=== PATIENT | female | born 1965 | race Caucasian/White ===

== ENCOUNTER → 2016-08-18 | Outpatient (CLI) | payer BC ==
--- NOTE | 2016-08-18 17:11 | WWHP ---
DATE OF DICTATION: 08/18/2016 CHIEF COMPLAINT: The patient is here for her routine gynecologic exam. HISTORY OF PRESENT ILLNESS: This is a 51-year-old G2, P2 with an LMP of 05/16/15. The patient's is status post vasectomy. She states she has been having some menopausal symptoms, and the one that bothers her the most is "feeling on edge." She also does wake at night, feeling hot at times. She has also had some problems with weight gain, which she thinks is related to the menopausal change. She previously took Prozac after the of her parents, and this was temporary. She does believe it did help in that situation. PAST MEDICAL HISTORY: Osteopenia. MEDICATIONS: 1. Valacyclovir 1 daily for a history of corneal herpes. 2. Pred Forte drops for her eyes daily. ALLERGIES: SULFA. 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 SOCIAL HISTORY: She continues to smoke about half a pack of cigarettes per day and has about 2 alcoholic drinks per year. She denies drug use. 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 REVIEW OF SYSTEMS: She has gained about 5 pounds over the last year. She denies respiratory, cardiac or GI problems. PHYSICAL EXAM: Blood pressure 134/91. Height 5 feet 7 inches. Weight 154 pounds. Temperature 97.8, pulse 68. This is a well-developed, well-nourished white female who is alert and oriented x3, in no acute distress. HEENT is within normal limits. NECK: Supple without mass or thyromegaly. CHEST AND LUNGS: Clear to auscultation. HEART: Regular rate and rhythm. Breasts are without mass or discharge. Axillary exam is negative for adenopathy. BACK: Negative for CVA tenderness. ABDOMEN: Soft, nontender, without palpable masses. PELVIC EXAM: External genitalia reveal mild atrophy without lesions. Cervix and vagina reveal mild atrophy without lesions. There is no evidence of prolapse. The uterus is midposition, nongravid size and nontender. There are no palpable adnexal masses or tenderness. Rectovaginal exam is negative for mass or tenderness and is negative for occult blood. EXTREMITIES: Nontender. IMPRESSION: Hsaql-ovon-hzvj-old menopausal female with menopausal symptoms, including slight irritability, anxiety, vasomotor symptoms and slight weight gain. PLAN: 1. Pap smear was performed. 2. Self breast examination was discussed. 3. Mammogram will be due in 01/30, and a slip was given to the patient for this. 4. We discussed her mildly elevated blood pressure. I have recommended that she have this checked on a regular basis and follow up with Dr. Wells for blood pressure elevations. 5. We have had a long discussion regarding menopausal symptoms. We discussed various options, including low-dose HRT, SSRI medications and herbal supplements. We have discussed pros and cons with each. She would like a trial of Prozac, since she states she had done well on this in the past. A prescription for Prozac 10 mg 1 daily was given to the patient. She was instructed call if she has any problems, including any suicidal thoughts. If she is doing well with the Prozac, she will try weaning down and off of it in approximately 4 months. If she continues to have symptoms or issues, she was instructed to make a follow-up appointment with me. 6. Osteoporosis prevention was discussed. I gave her a handout on osteoporosis prevention. Will plan on repeating bone density testing in one year. 7. She will return in one year and p.r.n.
== END | disposition home or self-care (01) ==

== ENCOUNTER → 2017-02-10 | Outpatient (CLI) | payer BC ==
--- NOTE | 2017-02-11 13:59 | MM ---
Reason for exam: screening (asymptomatic). Last mammogram was performed 1 year ago. History: Patient is postmenopausal. Family history of breast cancer in sister at age 47. Benign US biopsy breast VAD RT of the right breast, January 24, 2015. Benign excisional biopsy of the left breast, 1989. Physical Findings: A clinical breast exam by your physician is recommended on an annual basis and results should be correlated with mammographic findings. MG 3D Screening Mammo W/Cad Bilateral CC and MLO view(s) were taken. Prior study comparison: February 03, 2016, bilateral MG 3d screening mammo w/cad. August 06, 2015, right breast MG 3d diag mammo w/cad RT. The breast tissue is heterogeneously dense. This may lower the sensitivity of mammography. Previous mammotome biopsy in the right breast. No significant changes when compared with prior studies. ASSESSMENT: Benign, BI-RAD 2 RECOMMENDATION: Routine screening mammogram of both breasts in 1 year.
== END | disposition home or self-care (01) ==
LOC: RADMAMWWP 07:07
PROVIDERS: ATTEND Obstetrics & Gynecology
DX: Z12.31 Encounter for screening mammogram for malignant neoplasm of breast (principal)
CPT/HCPCS: 77063; G0202

== ENCOUNTER → 2017-11-16 | Outpatient (CLI) | payer BC ==
[2017-11-16 08:41] VITALS: PULSE 77; TEMP 98.2; BMI 23.6
--- NOTE | 2017-11-16 08:50 | P.HPOB ---
History of Present Illness H&P Date: 11/16/17 Chief Complaint: The patient is here for her routine gynecologic exam. This is a 52-year-old NG tube P2 with an LMP of 05/2016. The patient is without gynecologic complaints and denies any postmenopausal bleeding. She occasionally has a hot flash at night but this is mild. Her biggest problem with menopause has been the difficulty losing weight. Review of Systems She has lost 3 pounds over the last year. She recently got over the flu. She denies current respiratory, cardiac, or G.I. problems. Past Medical History Additional Past Medical History / Comment(s): History of osteopenia. Past OB history: to vaginal deliveries. 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 Colonoscopy 2016 and this was her 3rd one. 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 - Past Family History Sister(s) Family Medical History: Cancer (Breast cancer in her 40s.) Father Family Medical History: Diabetes Mellitus, Myocardial Infarction ([place]) Medications and Allergies Home Medications Medication Instructions Recorded Confirmed Type Calcium Carbonate/Vitamin D3 1 each PO DAILY 11/16/17 11/16/17 History [Calcium 600-Vit D3 500 Softgel] Cholecalciferol [Vitamin D3] 1,000 unit PO DAILY 11/16/17 11/16/17 History Multivitamins, Thera [Multivitamin 1 tab PO DAILY 11/16/17 11/16/17 History (formulary)] [place]-3 Fatty Acids [[place]-3] 1,000 mg PO DAILY 11/16/17 11/16/17 History valACYclovir [Valtrex] 1 tab PO DIRECTED 11/16/17 11/16/17 History Allergies Allergy/AdvReac Type Severity Reaction Status Date / Time Sulfa (Sulfonamide Allergy Rash/Hives Verified 12/31/14 07:31 Antibiotics) Exam - Vital Signs Vital signs: Intake and Output 11/15/17 11/16/17 11/16/17 22:59 06:59 14:59 Other: Weight 68.492 kg Blood pressure 157/88. Repeat blood pressure 138/78. Height 5'7", weight 151 pounds, temperature 98.2, pulse 77. This is a well-developed well-nourished white female who is alert and oriented times 3 in no acute distress. HEENT: Within normal limits. NECK: Supple without mass or thyromegaly. CHEST AND LUNGS: Clear to auscultation. HEART: Regular rate and rhythm. BREASTS: Are without mass or discharge. AXILLARY EXAM: Negative for adenopathy. BACK: Negative for CVA tenderness. ABDOMEN: Soft, nontender, without palpable masses. PELVIC EXAM: Normal external genitalia without significant atrophy. Cervix and vagina appear normal without significant atrophy. There is no unusual discharge. There is no evidence of prolapse. The uterus is midposition, nongravid size and nontender. There are no palpable adnexal masses or tenderness. RECTAL EXAM: rectovaginal exam is negative for mass or tenderness and is negative for occult blood. EXTREMITIES: Nontender. IMPRESSION: 1. 52-year-old menopausal female with normal gynecologic exam. 2. History of osteopenia. PLAN: 1. Pap smear was deferred since she had a normal one last year. 2. Self breast examination was discussed. 3. Screening mammogram will be due in January 2018. An order slip was given the patient for this. 4. Osteoporosis prevention was discussed. An order slip for a bone density test was given to the patient. She will do this at the time of her mammogram. 5. She will return in one year.
== END | disposition home or self-care (01) ==
LOC: WWCWWP 08:04
PROVIDERS: ATTEND Obstetrics & Gynecology
DX: Z53.9 Procedure and treatment not carried out, unspecified reason (principal)

== ENCOUNTER → 2018-02-21 | Outpatient (CLI) | payer BC ==
--- NOTE | 2018-02-21 12:14 | BD ---
EXAMINATION TYPE: Axial Bone Density DATE OF EXAM: 02/21/2018 COMPARISON: 2016 CLINICAL HISTORY: post menopausal female. Osteoporosis screening. Height: 5'6 Weight: 153 FRAX RISK QUESTIONS: Secondary Osteoporosis: Current Tobacco Use: y RISK FACTORS HISTORY OF: Family History of Osteoporosis: y Postmenopausal woman: y MEDICATIONS: Additional Medications: cornea transplant Additional History: EXAM MEASUREMENTS: Bone mineral densitometry was performed using the [employer] System. Bone mineral density as measured about the Lumbar spine is: ----- L1-L4(G/cm2): 0.799 T Score Values are as follows: ----- L2: -3.3 ----- L3: -3.5 ----- L4: -3.0 ----- L1-L4: -3.2 Bone mineral density has: Decreased -11.4% since study of: 11/08/2015 Bone mineral density about the R hip (g/cm2): 0.839 Bone mineral density about the L hip (g/cm2): 0.764 T Score values are as follows: -----R Neck: -1.4 -----L Neck: -2.0 -----R Total: -1.7 -----L Total: -2.1 Bone mineral density has: Decreased -8.5% since study of: 11/08/2015 IMPRESSION: Osteoporosis (T Score less than -2.5) with regards to the lumbar spine. There is increased fracture risk and therapy is usually indicated based on age. Re-Screen 1-2 years. NOTE: T-SCORE=SD OF THE YOUNG ADULT MEAN.
--- NOTE | 2018-02-22 10:17 | MM ---
Reason for exam: screening (asymptomatic). Last mammogram was performed 1 year ago. History: Patient is postmenopausal. Family history of breast cancer in sister at age 47. Benign US biopsy breast VAD RT of the right breast, January 24, 2015. Benign excisional biopsy of the left breast, 1989. Physical Findings: A clinical breast exam by your physician is recommended on an annual basis and results should be correlated with mammographic findings. MG 3D Screening Mammo W/Cad Bilateral CC and MLO view(s) were taken. Prior study comparison: February 10, 2017, bilateral MG 3d screening mammo w/cad. February 03, 2016, bilateral MG 3d screening mammo w/cad. The breast tissue is heterogeneously dense. This may lower the sensitivity of mammography. There is no discrete abnormality. No significant changes when compared with prior studies. ASSESSMENT: Negative, BI-RAD 1 RECOMMENDATION: Routine screening mammogram of both breasts in 1 year.
== END | disposition home or self-care (01) ==
LOC: RADMAMWWP 07:04
PROVIDERS: ATTEND Obstetrics & Gynecology
DX: Z12.31 Encounter for screening mammogram for malignant neoplasm of breast (principal); M81.0 Age-related osteoporosis without current pathological fracture; Z78.0 Asymptomatic menopausal state
CPT/HCPCS: 77063; 77067; 77080

== ENCOUNTER → 2018-08-18 | Outpatient (CLI) | payer BC ==
[2018-08-18 07:08] LABS: Blood Urea Nitrogen 15 mg/dL (7-17)
--- NOTE | 2018-08-18 08:04 | CT ---
EXAMINATION TYPE: CT soft tissue neck w con DATE OF EXAM: 08/18/2018 COMPARISON: None HISTORY: Cervical Lymphadenopathy CT DLP: 625 mGycm CONTRAST: CT scan of the neck is performed with IV Contrast, patient injected with 100 mL of Isovue 300. Contrast enhanced CT of the neck was performed from the skull base through the lung apices. AIRWAY: The supraglottic, glottic, and subglottic portions of the airway appear patent and free of mass. SALIVARY GLANDS: The submandibular and parotid glands are free of mass or inflammatory process. THYROID GLAND: No nodules or masses seen. LYMPH NODES: BBs is placed at the site of clinical concern posterior right neck where there is a smal l 3 to 4 mm lymph node. No adenopathy seen greater than 1cm. LUNG APICES: No nodule or mass is seen. OTHER: Vascular structures are patent. No significant degenerative change of the cervical spine. N o abscess seen. IMPRESSION: There is a 4 mm lymph node at the site of clinical concern posterior right neck.
== END | disposition home or self-care (01) ==
LOC: RADCTMAIN 06:31
PROVIDERS: ATTEND Internal Medicine
DX: R59.0 Localized enlarged lymph nodes (principal)
CPT/HCPCS: 82565; 84520; 70491; 36415; Q9967

== ENCOUNTER → 2019-02-28 | Outpatient (CLI) | payer BC ==
[2019-02-28 09:32] VITALS: BP 152/91; PULSE 84; RESP 16; TEMP 98.5; BMI 23.9
--- NOTE | 2019-02-28 10:19 | P.HPOB ---
History of Present Illness H&P Date: 02/28/19 Chief Complaint: The patient is here for her routine gynecologic exam and ma mmogram. This is a 54-year-old with an LMP of 2016. The patient is without gynecologic complaints. She states she was told she was anemic and was told to start iron supplementation after a blood test last month. The Iron supplement caused constipation. Review of Systems Her weight has been stable. She denies respiratory or cardiac problems. G.I.: she has had problems with constipation since starting an iron supplement as in the HPI. Past Medical History Additional Past Medical History / Comment(s): History of osteoporosis. Past OB history: 2 vaginal deliveries. 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 History of Any Multi-Drug Resistant Organisms: None Reported Past Surgical History: Breast Surgery, Tonsillectomy Additional Past Surgical History / Comment(s): Left breast biopsy and right breast biopsy in the past. 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 Colonoscopy 2016 and this was her 3rd one. 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 - Past Family History Sister(s) Family Medical History: Cancer Additional Family Medical History / Comment(s): Breast cancer in her 40s. Father Family Medical History: Diabetes Mellitus, Myocardial Infarction ([place]) Medications and Allergies Home Medications Medication Instructions Recorded Confirmed Type Calcium Carbonate/Vitamin D3 1 each PO DAILY 11/16/17 02/28/19 History [Calcium 600-Vit D3 500 Softgel] Cholecalciferol [Vitamin D3] 1,000 unit PO DAILY 11/16/17 02/28/19 History Multivitamins, Thera [Multivitamin 1 tab PO DAILY 11/16/17 02/28/19 History (formulary)] valACYclovir [Valtrex] 1 tab PO DIRECTED 11/16/17 02/28/19 History Cyanocobalamin [Vitamin B-12] 500 mcg PO DAILY 02/28/19 02/28/19 History Ferrous Sulfate [Feosol] 325 mg PO DAILY 02/28/19 02/28/19 History Allergies Allergy/AdvReac Type Severity Reaction Status Date / Time Sulfa (Sulfonamide Allergy Rash/Hives Verified 02/28/19 09:35 Antibiotics) Exam Vital Signs Temp Pulse Resp BP Pulse Ox 02/28/19 09:26 98.5 F 84 16 152/91 99 Intake and Output 02/27/19 02/28/19 02/28/19 22:59 06:59 14:59 Other: Weight 69.4 kg Height 5'7", weight 153 pounds, BMI 24.0. This is a well-developed well-nourished white female who is alert and oriented times 3 in no acute distress. HEENT: Within normal limits. NECK: Supple without mass or thyromegaly. CHEST AND LUNGS: Clear to auscultation. HEART: Regular rate and rhythm. BREASTS: Are without mass or discharge. AXILLARY EXAM: Negative for adenopathy. BACK: Negative for CVA tenderness. ABDOMEN: Soft, nondistended, with minimal lower abdominal tenderness without rebound. The patient attributes the slight discomfort with constipation. Abdomen is without palpable masses. PELVIC EXAM: Normal external genitalia. Cervix and vagina appear normal. There is no unusual discharge. There is no evidence of prolapse. The uterus is midposition, nongravid size and nontender. There are no palpable adnexal masses or tenderness. RECTAL EXAM: rectovaginal exam is negative for mass or tenderness and is negative for occult blood. EXTREMITIES: Nontender. IMPRESSION: 1. 54-year-old menopausal female with normal gynecologic exam. 2. Elevated blood pressure. 3. Constipation probably secondary to her Iron supplement. 4. History of osteoporosis. The patient is declining medication for this at this time. PLAN: 1. Pap smear was performed. 2. Self breast awareness was discussed with the patient. 3. Screening mammogram will be done today. 4. I have recommended that she check her blood pressure on her own on a regular basis. She is to follow-up with Dr. Wells for blood pressure elevations. 5. Osteoporosis management was discussed. I have again recommended medication for osteoporosis. She is declining medication at this time. She understands that she is at a greater risk for fracture bones. I have also recommended that she quit smoking. I have stressed the importance of adequate calcium, vitamin D and regular exercise. Recommended amounts of calcium and vitamin D were also discussed. She will let me know if she changes her mind about medical treatment for osteoporosis. 6. We discussed some options for her constipation. We discussed options such as laxatives, still softeners and natural remedies. She will try hot lemon water 1st thing in the morning on an empty stomach. She will also discuss her blood test results with Dr. Wells to see how necessary the iron supplementation is. 7.She was advised to return in one year for her annual well woman exam.
--- NOTE | 2019-03-01 11:10 | MM ---
Reason for exam: screening (asymptomatic). Last mammogram was performed 1 year ago. History: Patient is postmenopausal. Family history of breast cancer in sister at age 47. Benign US biopsy breast VAD RT of the right breast, January 24, 2015. Benign excisional biopsy of the left breast, 1989. Physical Findings: A clinical breast exam by your physician is recommended on an annual basis and results should be correlated with mammographic findings. MG 3D Screening Mammo W/Cad Bilateral CC and MLO view(s) were taken. Prior study comparison: February 21, 2018, bilateral MG 3d screening mammo w/cad. February 10, 2017, bilateral MG 3d screening mammo w/cad. The breast tissue is heterogeneously dense. This may lower the sensitivity of mammography. Previous mammotome biopsy in the right breast. No significant changes when compared with prior studies. ASSESSMENT: Benign, BI-RAD 2 RECOMMENDATION: Routine screening mammogram of both breasts in 1 year.
== END | disposition home or self-care (01) ==
LOC: WWCWWP 09:21
PROVIDERS: ATTEND Obstetrics & Gynecology
DX: Z12.31 Encounter for screening mammogram for malignant neoplasm of breast (principal)
CPT/HCPCS: 77063; 77067

== ENCOUNTER → 2020-03-20 | Outpatient (CLI) | payer BC ==
[2020-03-20 08:10] VITALS: BP 163/78; PULSE 72; RESP 18; TEMP 97.7
--- NOTE | 2020-03-20 08:52 | P.HPOB ---
History of Present Illness H&P Date: 03/20/20 Chief Complaint: The patient is here for her routine gynecologic exam and ma mmogram. This is a 55-year-old with an LMP of 2016. The patient is without gynecologic complaints. Review of Systems The patient has lost 5 pounds over the last year. She denies respiratory or cardiac problems. GI: Some constipation. Past Medical History Past Medical History: No Reported History Additional Past Medical History / Comment(s): History of osteoporosis. Past OB history: 2 vaginal deliveries. 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 History of Any Multi-Drug Resistant Organisms: None Reported Past Surgical History: Breast Surgery, Tonsillectomy Additional Past Surgical History / Comment(s): Left breast biopsy and right breast biopsy in the past. 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 Colonoscopy 2017 and this was her 3rd one. 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 - Past Family History Sister(s) Family Medical History: Cancer Additional Family Medical History / Comment(s): Breast cancer in her 40s. Father Family Medical History: Diabetes Mellitus, Hypertension, Myocardial Infarction ([place]), Pulmonary Embolus Medications and Allergies Home Medications Medication Instructions Recorded Confirmed Type Calcium Carbonate/Vitamin D3 1 each PO DAILY 11/16/17 03/20/20 History [Calcium 600-Vit D3 500 Softgel] Cholecalciferol [Vitamin D3] 1,000 unit PO DAILY 11/16/17 03/20/20 History Multivitamins, Thera [Multivitamin 1 tab PO DAILY 11/16/17 03/20/20 History (formulary)] valACYclovir [Valtrex] 1 tab PO DIRECTED 11/16/17 03/20/20 History Cyanocobalamin [Vitamin B-12] 500 mcg PO DAILY 02/28/19 03/20/20 History Prednisolone Acetate/Pf 1 drop RIGHT EYE DAILY 03/20/20 03/20/20 History [Prednisolone Acet 1% Eye Drop] Allergies Allergy/AdvReac Type Severity Reaction Status Date / Time Sulfa (Sulfonamide Allergy Rash/Hives Verified 03/20/20 08:02 Antibiotics) Exam Vital Signs Temp Pulse Resp BP Pulse Ox 03/20/20 08:04 97.7 F 72 18 163/78 100 Intake and Output 03/19/20 03/20/20 03/20/20 22:59 06:59 14:59 Other: Weight 67.132 kg Height 5 feet 6 inches, weight 148 pounds, BMI 23.9. This is a well-developed well-nourished white female who is alert and oriented times 3 in no acute distress. HEENT: Within normal limits. NECK: Supple without mass or thyromegaly. CHEST AND LUNGS: Clear to auscultation. HEART: Regular rate and rhythm. BREASTS: Are without mass or discharge. AXILLARY EXAM: Negative for adenopathy. BACK: Negative for CVA tenderness. ABDOMEN: Soft, nontender, without palpable masses. PELVIC EXAM: Normal external genitalia. Cervix and vagina appear normal. There is no unusual discharge. There is no evidence of prolapse. The uterus is midposition, nongravid size and nontender. There are no palpable adnexal masses or tenderness. RECTAL EXAM: Rectovaginal exam is negative for mass or tenderness and is negative for occult blood. EXTREMITIES: Nontender. IMPRESSION: 1. 55-year-old menopausal female with normal gynecologic exam. 2. History of osteoporosis and she has declined medication in the past. 3. Elevated blood pressure. PLAN: 1. Pap smear was deferred since she had a normal one on 02/28/2019. 2. Self breast awareness was discussed with the patient. 3. Screening mammogram will be done today. 4. We have discussed her elevated blood pressure. We have discussed risks of uncontrolled hypertension including greater risk for stroke, heart attack and blood clots. We have also discussed the significant risks of smoking. I have stressed the importance of trying to quit. I have recommended she check her own blood pressure on a regular basis and follow up with her primary care physician Dr. Wells. She states she will make an appointment with Dr. Wells to discuss this. 5. Osteoporosis management was discussed. I have stressed the importance of adequate calcium, vitamin D and regular exercise. Recommended amounts of calcium and vitamin D were also discussed. We have discussed the option of medication for osteoporosis and I am recommending this for the patient. She is very concerned about possible side effects and risks of taking this medication. She states she would like to redo her bone density test and if there is a significant decrease she states she would consider medication. The order slip was given to the patient for this. Her last bone density test was done on 02/21/2018. 6. She was advised to return in one year for her annual well woman exam.
--- NOTE | 2020-03-25 11:21 | MM ---
Reason for exam: screening (asymptomatic). Last mammogram was performed 1 year and 1 month ago. History: Patient is postmenopausal. Family history of breast cancer in sister at age 47. Benign US biopsy breast VAD RT of the right breast, January 24, 2015. Benign excisional biopsy of the left breast, 1989. Physical Findings: A clinical breast exam by your physician is recommended on an annual basis and results should be correlated with mammographic findings. MG 3D Screening Mammo W/Cad Bilateral CC and MLO view(s) were taken. Prior study comparison: February 28, 2019, bilateral MG 3d screening mammo w/cad. February 21, 2018, bilateral MG 3d screening mammo w/cad. The breast tissue is heterogeneously dense. This may lower the sensitivity of mammography. No significant changes when compared with prior studies. ASSESSMENT: Negative, BI-RAD 1 RECOMMENDATION: Routine screening mammogram of both breasts in 1 year.
== END | disposition home or self-care (01) ==
LOC: WWCWWP 07:57
PROVIDERS: ATTEND Obstetrics & Gynecology
DX: Z12.31 Encounter for screening mammogram for malignant neoplasm of breast (principal)
CPT/HCPCS: 77063; 77067

== ENCOUNTER → 2021-03-17 | Outpatient (CLI) | payer BC ==
--- NOTE | 2021-03-17 09:25 | US ---
EXAMINATION TYPE: US liver DATE OF EXAM: 03/17/2021 COMPARISON: Patient's prior is not available for corroboration. CLINICAL HISTORY: 56-year-old female K76.9 Liver Disease. The patient states liver lesion noted on re cent CT. No prior available here. TECHNIQUE: Multiple sonographic images of the right upper quadrant are obtained. FINDINGS: EXAM MEASUREMENTS: Liver Length: 15.6 cm Gallbladder Wall: 0.2 cm CBD: 0.4 cm Right Kidney: 9.5 x 4.5 x 4.6 cm Pancreas: Tail obscured by overlying bowel gas Liver: No focal lesion identified. Overall homogeneous appearance. Gallbladder: no evidence of stones Evidence for sonographic Campa's sign: no CBD: wnl Right Kidney: no evidence of hydronephrosis IMPRESSION: Homogeneous appearance to the liver. No focal lesion identified by ultrasound. Recommend reviewing th e patient's outside study. Depending on the appearance and characteristics of the liver lesion, eithe r follow-up CT or MRI should be considered.
== END | disposition home or self-care (01) ==
LOC: RADUSWWP 07:11
PROVIDERS: ATTEND Family Medicine
DX: K76.9 Liver disease, unspecified (principal)
CPT/HCPCS: 76705

== ENCOUNTER → 2021-03-25 | Outpatient (CLI) | payer BC ==
[2021-03-25 13:00] VITALS: BP 136/87; PULSE 76; RESP 18; TEMP 98.2
--- NOTE | 2021-03-25 13:35 | P.HPOB ---
History of Present Illness H&P Date: 03/25/21 Chief Complaint: The patient is here for her routine gynecologic exam and ma mmogram. This is a 56-year-old with an LMP of 2016. The patient is without gynecologic complaints and denies any postmenopausal bleeding. Review of Systems The patient's weight has been stable over the last year. She denies respiratory, cardiac, or G.I. problems. Past Medical History Past Medical History: No Reported History Additional Past Medical History / Comment(s): History of osteoporosis. Past OB history: 2 vaginal deliveries. 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 History of Any Multi-Drug Resistant Organisms: None Reported Past Surgical History: Breast Surgery, Tonsillectomy Additional Past Surgical History / Comment(s): Left breast biopsy and right breast biopsy in the past. 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 Colonoscopy 2017 and this was her 3rd one. 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 - Past Family History Sister(s) Family Medical History: Cancer Additional Family Medical History / Comment(s): Breast cancer in her 40s. Father Family Medical History: Diabetes Mellitus, Hypertension, Myocardial Infarction ([place]), Pulmonary Embolus Medications and Allergies Home Medications Medication Instructions Recorded Confirmed Type Calcium Carbonate/Vitamin D3 1 each PO DAILY 11/16/17 03/25/21 History [Calcium 600-Vit D3 500 Softgel] Cholecalciferol [Vitamin D3] 1,000 unit PO DAILY 11/16/17 03/25/21 History Multivitamins, Thera [Multivitamin 1 tab PO DAILY 11/16/17 03/25/21 History (formulary)] valACYclovir [Valtrex] 1 tab PO DIRECTED 11/16/17 03/25/21 History Cyanocobalamin [Vitamin B-12] 500 mcg PO DAILY 02/28/19 03/25/21 History Prednisolone Acetate/Pf 1 drop RIGHT EYE DAILY 03/20/20 03/25/21 History [Prednisolone Acet 1% Eye Drop] Alendronate Sodium 70 mg PO WEEKLY #12 tab 04/23/20 03/25/21 Rx Allergies Allergy/AdvReac Type Severity Reaction Status Date / Time Sulfa (Sulfonamide Allergy Rash/Hives Verified 03/25/21 12:53 Antibiotics) Exam Vital Signs Temp Pulse Resp BP Pulse Ox 03/25/21 12:54 98.2 F 76 18 136/87 98 Intake and Output 03/24/21 03/25/21 03/25/21 22:59 06:59 14:59 Other: Weight 67.585 kg Height 5 feet 6 inches, weight 149 pounds, BMI 24.0. This is a well-developed well-nourished white female who is alert and oriented times 3 in no acute distress. HEENT: Within normal limits. NECK: Supple without mass or thyromegaly. CHEST AND LUNGS: Clear to auscultation. HEART: Regular rate and rhythm. BREASTS: Are without mass or discharge. AXILLARY EXAM: Negative for adenopathy. BACK: Negative for CVA tenderness. ABDOMEN: Soft, nontender, without palpable masses. PELVIC EXAM: Normal external genitalia with mild atrophy. Cervix and vagina appear normal with mild atrophy. There is no unusual discharge. There is no evidence of prolapse. The uterus is midposition, nongravid size and nontender. There are no palpable adnexal masses or tenderness. RECTAL EXAM: Rectovaginal exam is negative for mass or tenderness and is negative for occult blood. EXTREMITIES: Nontender. IMPRESSION: 1. 56-year-old menopausal female with normal gynecologic exam. 2. History of osteoporosis and has been on Fosamax for 11 months. PLAN: 1. Pap smear cotest was performed. 2. Self breast awareness was discussed with the patient. We have discussed the symptoms associated with inflammatory breast cancer. 3. Screening mammogram will be done today. 4. Osteoporosis management was discussed. I have stressed the importance of adequate calcium, vitamin D and regular exercise. Recommended amounts of calcium and vitamin D were also discussed. We will plan on repeating bone density test in 1 year. She will continue taking Fosamax as directed. 5. She has completed her Covid vaccination series. 6. She was advised to return in one year for her annual well woman exam.
--- NOTE | 2021-03-27 11:27 | MM ---
Reason for exam: screening (asymptomatic). Last mammogram was performed 1 year ago. History: Patient is postmenopausal. Family history of breast cancer in sister at age 47. Benign US biopsy breast VAD RT of the right breast, January 24, 2015. Benign excisional biopsy of the left breast, 1989. Physical Findings: A clinical breast exam by your physician is recommended on an annual basis and results should be correlated with mammographic findings. MG 3D Screening Mammo W/Cad Bilateral CC and MLO view(s) were taken. Prior study comparison: March 20, 2020, bilateral MG 3d screening mammo w/cad. February 28, 2019, bilateral MG 3d screening mammo w/cad. There are scattered fibroglandular densities. Previous mammotome biopsy in the right breast. ASSESSMENT: Benign, BI-RAD 2 RECOMMENDATION: Routine screening mammogram of both breasts in 1 year.
== END ==
LOC: WWCWWP 12:38
PROVIDERS: ATTEND Obstetrics & Gynecology
DX: Z01.419 Encounter for gynecological examination (general) (routine) without abnormal findings (principal); F17.210 Nicotine dependence, cigarettes, uncomplicated; Z87.39 Personal history of other diseases of the musculoskeletal system and connective tissue; Z88.2 Allergy status to sulfonamides
CPT/HCPCS: 77063; 77067

== ENCOUNTER → 2021-07-11 | Outpatient (CLI) | payer BC ==
--- NOTE | 2021-07-11 08:29 | XR ---
Right knee HISTORY: Pain 3 views the right knee Bone mineralization, joint spaces and alignment are maintained. There is no fracture or dislocation. Suprapatellar increased density may reflect a small effusion. IMPRESSION: Possible small joint effusion, knee MRI may be of benefit.
== END | disposition home or self-care (01) ==
LOC: RADXRMAIN 05:53
PROVIDERS: ATTEND Family Medicine
DX: M25.561 Pain in right knee (principal)

== ENCOUNTER → 2022-02-17 | Outpatient (CLI) | payer BC ==
[2022-02-17 10:38] LABS: Basophils # (A) 0.05 X 10*3/uL (0.00-0.10); Basophils % (A) 0.8 %; Eosinophils # (A) 0.19 X 10*3/uL (0.04-0.35); Eosinophils % (A) 3.1 %; HCT 43.4 % (37.2-46.3); HGB 13.4 g/dL (12.0-15.0); Immature Grans, Automated 0.2 %; Lymphocytes # (A) 1.83 X 10*3/uL (0.90-5.00); Lymphocytes % (A) 29.8 %; MCH 27.8 pg (27.0-32.0); MCHC 30.9 g/dL (32.0-37.0); Mean Platelet Volume 10.8 fL (9.5-12.2); Monocytes # (A) 0.37 X 10*3/uL (0.20-1.00); NRBC Per 100 WBC 0 /100 WBCS (0.0-0.0); Neutrophils # (A) 3.69 X 10*3/uL (1.80-7.70); Neutrophils % (A) 60.1 %; Platelet Count 250 X 10*3/uL (140-440); RBC 4.82 X 10*6/uL (4.10-5.20); RDW 12.3 % (11.5-14.5); WBC 6.14 X 10*3/uL (4.50-10.00)
[2022-02-17 10:50] LABS: Anion Gap 10.6 mmol/L (10.00-18.00); Carbon Dioxide 25.4 mmol/L (20.0-27.5); Potassium 4.1 mmol/L (3.5-5.5)
== END | disposition home or self-care (01) ==
LOC: LABPAT 06:52
PROVIDERS: ATTEND Orthopaedic Surgery
DX: Z01.818 Encounter for other preprocedural examination (principal); M23.91 Unspecified internal derangement of right knee
CPT/HCPCS: 80051; 85025; 93005

== ENCOUNTER 2022-03-05 12:59 | Day surgery (SDC) | payer BC ==
--- NOTE | 2022-03-04 15:47 | HP ---
HISTORY AND PHYSICAL REASON FOR ADMISSION: Surgery 03/05/2022 HISTORY OF PRESENT ILLNESS: Carmenza Rosas is a 57-year-old patient seen with progressive right knee pain. We discussed options for treatment. She elected to proceed with right knee arthroscopy. Consent obtained. PAST MEDICAL HISTORY: Osteoporosis. PAST SURGICAL HISTORY: Breast biopsy. MEDICATIONS: Vitamins. ALLERGIES: SULFA. SOCIAL HISTORY: She denies tobacco use. PHYSICAL EVALUATION OF THE RIGHT KNEE: Range of motion is negative 2 to 110 degrees. Mild effusion. Tenderness along the medial joint line. Positive medial Shoshana's. Ligaments stable. Hip rotation without pain. Distal neurovascular exam intact. RADIOGRAPHS: Right knee radiographs revealed mild osteoarthritis. MRI right knee revealed medial meniscal tear. IMPRESSION: Internal derangement of right knee medial meniscal tear. PLAN: Right knee arthroscopy with partial medial meniscectomy and debridement. Surgery scheduled for 03/05/2022. MMODL / IJN: [id number] /
[~2022-03-05 12:59] MED LIST: DEXAMETHASONE SOD PHOSPHATE 4 MG/ML 1 ML VIAL IV ONE; HYDROmorphone 0.5 MG/0.5 ML SYRINGE IVP PRN; LACTATED RINGERS 1,000 ML IV SCH; LIDOCAINE 1% (10MG/ML) FOR IV START INTRADERMA PRN; METOCLOPRAMIDE 5 MG/ML 2 ML VIAL IVP PRN; ONDANSETRON 4 MG/2 ML VIAL IVP ONE
[2022-03-05] MEDS ORDERED: fentaNYL (PF) 50 MCG/ML 2 ML AMP ONE (14:10)
[2022-03-05] MEDS ORDERED: LIDOCAINE 2% INJ 20 MG/ML (2 ML VIAL) ONE (14:10)
[2022-03-05] MEDS ORDERED: PROPOFOL 10 MG/ML 20 ML VIAL IV ONE (14:10)
[2022-03-05] MEDS ORDERED: MIDAZOLAM 2 MG/2 ML VIAL ONE (14:10)
--- NOTE | 2022-03-05 14:51 | P.OP ---
Date of Procedure: 03/05/22 Preoperative Diagnosis: Internal derangement right knee Postoperative Diagnosis: 1. Complex tear medial meniscus right knee 2. Reactive synovitis medial, lateral and suprapatellar compartments right knee Procedure(s) Performed: 1. Arthroscopic partial medial meniscectomy right knee 2. Arthroscopic partial synovectomy medial, lateral and suprapatellar compartments right knee Anesthesia: JOSEPHINEA, local Surgeon: Gary Johnson Estimated Blood Loss (ml): 7 Pathology: none sent Condition: stable Disposition: PACU Indications for Procedure: 57-year-old patient seen with progressive right knee pain. After treatment options were discussed, she elected to proceed with arthroscopy. Operative Findings: See description of procedure Description of Procedure: Patient was taken to the operative suite. Patient underwent a general anesthetic by the department of anesthesia. Patient was given preoperative antibiotics. The right lower extremity was placed in a well-padded arthroscopic leg gonzales. The right leg was prepped and draped in the normal sterile orthopedic fashion. A lateral parapatellar and suprapatellar incision was made. Trochars were inserted. Arthroscopy was initiated. Suprapatellar pouch revealed diffuse thick reactive synovitis. The patellofemoral joint appeared to articulate congruently. There was no significant chondromalacia present. The scope was guided into the medial gutter. No loose bodies or plica were identified. The scope was then guided into the medial compartment. A medial parapatellar incision was made. Trocar inserted followed by probe. There was a complex tear involving the posterior horn medial meniscus was treated extending into the midbody area. There were grade 1 chondromalacia changes involving the medial compartment. There was some thick reactive synovitis anteriorly. I performed a partial medial meniscectomy getting down to stable meniscal tissue. I performed a partial synovectomy decompressing the reactive synovitis. The shaver was now removed. The residual meniscus was stable. There was good compression of synovitis. Scope and probe were then guided into the intercondylar notch. Cruciates were identified, probed and found to be stable. The scope and probe were then guided into lateral compartment. Lateral meniscus was probed and was found to be stable. There was some thick reactive synovitis anteriorly. There was no chondromalacia present. I introduced a motorized shaver and performed a partial synovectomy. The shaver was now removed. There appeared be good decompression of synovitis. The scope was in guided back into the suprapatellar compartment. I introduced a motorized shaver into the suprapatellar compartment. I debrided some piecemeal fragments of meniscus that I encountered. I performed a partial synovectomy. The shaver was removed. There was good decompression of synovitis. I took one more look around the entire knee, no residual debris. Instruments were now removed from the joint. The joint was infiltrated with .25% Marcaine. Steri-Strips were applied to the portal sites. Sterile dressings were applied. The patient was placed into a CHRIS hose. No tourniquet was utilized. The patient was awakened, transferred to a bed and taken to recovery stable satisfactory condition.
[2022-03-05 15:01] VITALS: RESP 16; TEMP 96.9
[2022-03-05] MEDS ORDERED: KETOROLAC 15 MG/ML 1 ML VIAL IVP ONE (15:20)
[2022-03-05 16:05] VITALS: BP 142/65; PULSE 71
== END 2022-03-05 16:28 | disposition home or self-care (01) ==
LOC: OR 12:59
PROVIDERS: ATTEND Orthopaedic Surgery
DX: S83.231A Complex tear of medial meniscus, current injury, right knee, initial encounter (principal); M65.861 Other synovitis and tenosynovitis, right lower leg; M94.261 Chondromalacia, right knee; M81.0 Age-related osteoporosis without current pathological fracture; Z88.2 Allergy status to sulfonamides; F17.200 Nicotine dependence, unspecified, uncomplicated; Z79.899 Other long term (current) drug therapy; Z80.3 Family history of malignant neoplasm of breast; Z83.3 Family history of diabetes mellitus; Z82.49 Family history of ischemic heart disease and other diseases of the circulatory system; X58.XXXA Exposure to other specified factors, initial encounter
CPT/HCPCS: 29881; 29876; J2250; J1100; J2405; J0690; J3010; J1885; J2704; J1170; J2001

== ENCOUNTER → 2022-03-31 | Outpatient (CLI) | payer BC ==
[2022-03-31 08:02] VITALS: BP 145/89; PULSE 93; RESP 17; TEMP 98.3
--- NOTE | 2022-03-31 08:36 | P.HPOB ---
History of Present Illness H&P Date: 03/31/22 Chief Complaint: The patient is here for her routine gynecologic exam and ma mmogram. This is a 57-year-old with an LMP of 2016. The patient is without gynecologic complaints. She has been doing well with the alendronate denies any problems associated with it. Review of Systems Weight has been stable. She denies respiratory or cardiac problems. GI: Occasional constipation. Past Medical History Past Medical History: Musculoskeletal Disorder, Osteoarthritis (OA), Skin Disorder Additional Past Medical History / Comment(s): History of osteoporosis on Fosamax since 2019. 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 History of Any Multi-Drug Resistant Organisms: None Reported Past Surgical History: Breast Surgery, Tonsillectomy Additional Past Surgical History / Comment(s): kusum. 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 Colonoscopies (last 2016). Arthroscopic knee surgery. 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 - Past Family History Sister(s) Family Medical History: Cancer, Coronary Artery Disease (CAD) Additional Family Medical History / Comment(s): Breast cancer in her 40s. Father Family Medical History: Diabetes Mellitus, Hypertension, Myocardial Infarction ([place]), Pulmonary Embolus Medications and Allergies Home Medications Medication Instructions Recorded Confirmed Type Calcium Carbonate/Vitamin D3 1 each PO DAILY 11/16/17 03/31/22 History [Calcium 600-Vit D3 500 Softgel] Cholecalciferol [Vitamin D3] 1,000 unit PO DAILY 11/16/17 03/31/22 History Multivitamins, Thera [Multivitamin 1 tab PO DAILY 11/16/17 03/31/22 History (formulary)] valACYclovir HCL [Valtrex] 500 mg PO WEEKLY 11/16/17 03/31/22 History Cyanocobalamin [Vitamin B-12] 500 mcg PO DAILY 02/28/19 03/31/22 History Prednisolone Acetate/Pf 1 drop RIGHT EYE WEEKLY 03/20/20 03/31/22 History [Prednisolone Acet 1% Eye Drop] Alendronate Sodium 70 mg PO WEEKLY #12 tab 03/25/21 03/31/22 Rx Allergies Allergy/AdvReac Type Severity Reaction Status Date / Time Sulfa (Sulfonamide Allergy Rash/Hives Verified 03/31/22 07:58 Antibiotics) Exam Vital Signs Temp Pulse Resp BP Pulse Ox 03/31/22 07:59 98.3 F 93 17 145/89 100 Intake and Output 03/30/22 03/31/22 03/31/22 22:59 06:59 14:59 Other: Weight 66.678 kg Height 5 feet 6 inches, weight 147 pounds, BMI 23.7. This is a well-developed well-nourished white female who is alert and oriented times 3 in no acute distress. HEENT: Within normal limits. NECK: Supple without mass or thyromegaly. CHEST AND LUNGS: Clear to auscultation. HEART: Regular rate and rhythm. BREASTS: Are without mass or discharge. AXILLARY EXAM: Negative for adenopathy. BACK: Negative for CVA tenderness. ABDOMEN: Soft, nontender, without palpable masses. PELVIC EXAM: Normal external genitalia with mild atrophy. Cervix and vagina appear normal with mild atrophy. There is no unusual discharge. There is no evidence of prolapse. The uterus is midposition, nongravid size and nontender. There are no palpable adnexal masses or tenderness. RECTAL EXAM: Rectovaginal exam is negative for mass or tenderness and is negative for occult blood. EXTREMITIES: Nontender. IMPRESSION: 1. 57-year-old menopausal female with normal gynecologic exam. 2. History of osteoporosis and has been on Fosamax for approximately 2 years. PLAN: 1. Pap smear was deferred since she had a negative Pap smear cotest on 03/25/2021. 2. Self breast awareness was discussed with the patient. We have also discussed symptoms associated with inflammatory breast cancer. 3. Screening mammogram will be done today. 4. 5. Osteoporosis management was discussed. I have stressed the importance of adequate calcium, vitamin D and regular exercise. Recommended amounts of calcium and vitamin D were also discussed. She will continue on Fosamax. The electronic prescription will be sent to [facility] pharmacy. Bone density testing will be done today. 6. She has completed her Covid vaccination series and did receive a booster. 7. I have advised that she try to quit smoking. 8. She was advised to return in one year for her annual well woman exam.
--- NOTE | 2022-03-31 13:27 | BD ---
EXAMINATION TYPE: Axial Bone Density DATE OF EXAM: 03/31/2022 COMPARISON: 2018 CLINICAL HISTORY: 57 years year old Female. ICD-10 CODE: Z780 POST DARCIE WITHOUT HRT Height: 5'6 1/2 Weight: 145 FRAX RISK QUESTIONS: Secondary Osteoporosis: Current Tobacco Use: y RISK FACTORS HISTORY OF: Family History of Osteoporosis: y Postmenopausal woman: y MEDICATIONS: Osteoporosis Medications: Which medication: Fosamax generic How Lon years Additional Medications: eyes drop, Additional History: EXAM MEASUREMENTS: Bone mineral densitometry was performed using the [employer] Education System. Bone mineral density as measured about the Lumbar spine is: ----- L1-L4(G/cm2): 0.821 T Score Values are as follows: ----- L1: -3.0 ----- L2: -3.2 ----- L3: -3.2 ----- L4: -2.8 ----- L1-L4: -3.0 Bone mineral density has: Increased 3.0% since study of: 02/21/2018 Bone mineral density about the R hip (g/cm2): 0.854 Bone mineral density about the L hip (g/cm2): 0.814 T Score values are as follows: -----R Neck: -1.3 -----L Neck: -1.6 -----R Total: -1.6 -----L Total: -1.9 Bone mineral density has: Increased 2.6% since study of: 02/21/2018 FRAX%s: The graph provided illustrates a 6.8% chance for a major osteoporotic fx and a 1.0% chance fo r the hips probability for fx in 10 years time. IMPRESSION: Osteoporosis (T Score less than -2.5). There is increased fracture risk and therapy is usually indicated based on age. Re-Screen 1-2 years. NOTE: T-SCORE=SD OF THE YOUNG ADULT MEAN.
--- NOTE | 2022-04-01 19:22 | MM ---
Reason for Exam: Screening (asymptomatic). Last screening mammogram was performed 12 month(s) ago. Patient History: Menarche at age 13. First Full-Term at age 29. Postmenopausal. 1989, Benign Excisional Biopsy on the left side. 01/24/2015, Benign Core Biopsy on the right side. Sister had breast cancer, age 47. Risk Values: Adele 5 year model risk: 3.8%. NCI Lifetime model risk: 24.2%. Prior Study Comparison: 02/28/2019 Bilateral Screening Mammogram, [facility]. 03/20/2020 Bilateral Screening Mammogram, [facility]. 03/25/2021 Bilateral Screening Mammogram, [facility]. Tissue Density: There are scattered fibroglandular densities. Findings: Analyzed By CAD. Microclip anterior right breast from prior biopsy. No significant change from prior exams. Overall Assessment: Negative, BI-RAD 1 Management: Screening Mammogram of both breasts in 1 year. 1. We note greater than 20% lifetime risk for the development of breast cancer based on a model of risk which takes family history into account. The patient may qualify for alternating screening breast MRI and screening mammograms at six-month intervals. 2. Patient should continue monthly self breast exams. 3. This exam should not preclude additional follow-up of suspicious palpable abnormalities. Electronically signed and approved by: Brad Seaman M.D. Radiologist
== END ==
LOC: WWCWWP 07:53
PROVIDERS: ATTEND Obstetrics & Gynecology
DX: Z12.31 Encounter for screening mammogram for malignant neoplasm of breast (principal); Z01.419 Encounter for gynecological examination (general) (routine) without abnormal findings; M81.0 Age-related osteoporosis without current pathological fracture; M19.90 Unspecified osteoarthritis, unspecified site; Z78.0 Asymptomatic menopausal state; F17.200 Nicotine dependence, unspecified, uncomplicated; Z88.2 Allergy status to sulfonamides
CPT/HCPCS: 77063; 77067; 77080

== ENCOUNTER → 2023-04-06 | Outpatient (CLI) | payer BC ==
[2023-04-06 08:14] VITALS: BP 137/90; PULSE 80; RESP 17; TEMP 98.1
--- NOTE | 2023-04-06 08:46 | P.HPOB ---
History of Present Illness H&P Date: 04/06/23 Chief Complaint: The patient is here for her routine gynecologic exam and ma mmogram. This is a 58-year-old with an LMP of 2016. The patient states she has noticed a little bit of pruritus of the left breast. She does not see any signs of a rash. She is otherwise without gynecologic complaints and denies any postmenopausal bleeding. Review of Systems Weight has been stable. She denies respiratory or cardiac problems. GI: Occasional IBS symptoms. Past Medical History Past Medical History: Musculoskeletal Disorder, Osteoarthritis (OA), Skin Disorder Additional Past Medical History / Comment(s): History of osteoporosis on Fosamax since 2019. 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 History of Any Multi-Drug Resistant Organisms: None Reported Past Surgical History: Breast Surgery, Tonsillectomy Additional Past Surgical History / Comment(s): kusum. 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 Colonoscopies (last 2016). Arthroscopic knee surgery. Past Psychological History: No Psychological Hx Reported Smoking Status: Current every day smoker (Less than a half a pack per day.) Past Alcohol Use History: Rare (12 per year.) Past Drug Use History: None Reported Additional History: She has been since 1992. 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 - Past Family History Sister(s) Family Medical History: Cancer, Coronary Artery Disease (CAD) Additional Family Medical History / Comment(s): Breast cancer in her 40s. Father Family Medical History: Diabetes Mellitus, Hypertension, Myocardial Infarction ([place]), Pulmonary Embolus Medications and Allergies Home Medications Medication Instructions Recorded Confirmed Type Calcium Carbonate/Vitamin D3 1 each PO DAILY 11/16/17 04/06/23 History [Calcium 600-Vit D3 500 Softgel] Cholecalciferol [Vitamin D3] 1,000 unit PO DAILY 11/16/17 04/06/23 History Multivitamins, Thera [Multivitamin 1 tab PO DAILY 11/16/17 04/06/23 History (formulary)] valACYclovir HCL [Valtrex] 500 mg PO WEEKLY 11/16/17 04/06/23 History Cyanocobalamin [Vitamin B-12] 500 mcg PO DAILY 02/28/19 04/06/23 History Prednisolone Acetate/Pf 1 drop RIGHT EYE WEEKLY 03/20/20 04/06/23 History [Prednisolone Acet 1% Eye Drop] Alendronate Sodium 70 mg PO WEEKLY #12 tab 03/31/22 04/06/23 Rx Allergies Allergy/AdvReac Type Severity Reaction Status Date / Time Sulfa (Sulfonamide Allergy Rash/Hives Verified 04/06/23 08:10 Antibiotics) Exam Vital Signs Temp Pulse Resp BP Pulse Ox 04/06/23 08:11 98.1 F 80 17 137/90 100 Intake and Output 04/05/23 04/06/23 04/06/23 22:59 06:59 14:59 Other: Weight 67.132 kg Height 5 feet 6 inches, weight 148 pounds, BMI 23.9. This is a well-developed well-nourished white female who is alert and oriented times 3 in no acute distress. HEENT: Within normal limits. NECK: Supple without mass or thyromegaly. CHEST AND LUNGS: Clear to auscultation. HEART: Regular rate and rhythm. BREASTS: Are without mass or discharge. The left breast has scratch miller which have not broken the skin on the lateral side of the breast. These appear as 3 short erythematous lines that are not raised. AXILLARY EXAM: Negative for adenopathy. BACK: Negative for CVA tenderness. ABDOMEN: Soft, nontender, without palpable masses. PELVIC EXAM: Normal external genitalia with mild atrophy. Cervix and vagina appear normal mild atrophy. There is no unusual discharge. There is no evidence of prolapse. The uterus is midposition, nongravid size and nontender. There are no palpable adnexal masses or tenderness. RECTAL EXAM: Rectovaginal exam is negative for mass or tenderness and is negative for occult blood. EXTREMITIES: Nontender. IMPRESSION: 1. 58-year-old menopausal female with normal gynecologic exam. 2. History of osteoporosis and she has been on Fosamax since 2019. PLAN: 1. Pap smear was deferred since she had a negative Pap smear cotest on 021. 2. Self breast awareness was discussed with the patient. We have also discussed symptoms associated with inflammatory breast cancer. 3. Screening mammogram will be done today. 4. Osteoporosis management was discussed. I have stressed the importance of adequate calcium, vitamin D and regular exercise. Recommended amounts of calcium and vitamin D were also discussed. We will plan to continue the Fosamax for 2 more years. The electronic prescription will be sent to [facility] pharmacy in [facility]. We'll plan on repeating the bone density test in 1-2 years. 5. I recommended that she try to quit smoking. 6. She believes she is due for a colonoscopy and she will discuss this with her PCP. 7. I have advised that she can use [id number] hydrocortisone cream as needed for pruritus of the left breast. 8. She was advised to return in one year for her annual well woman exam.
--- NOTE | 2023-04-07 15:58 | MM ---
Reason for Exam: Screening (asymptomatic). Last screening mammogram was performed 12 month(s) ago. Patient History: Menarche at age 13. First Full-Term at age 29. Postmenopausal. 1989, Benign Excisional Biopsy on the left side. 01/24/2015, Benign Core Biopsy on the right side. Sister had breast cancer, age 47. Risk Values: Adele 5 year model risk: 4.0%. NCI Lifetime model risk: 23.7%. Prior Study Comparison: 02/03/2016 Bilateral Screening Mammogram, [facility]. 02/10/2017 Bilateral Screening Mammogram, [facility] 02/21/2018 Bilateral Screening Mammogram, [facility]. 02/28/2019 Bilateral Screening Mammogram, [facility] 03/20/2020 Bilateral Screening Mammogram, [facility]. 03/25/2021 Bilateral Screening Mammogram, [facility]. 03/31/2022 Bilateral MG 3D screening mammo w/cad, [facility]. Tissue Density: There are scattered fibroglandular densities. Findings: Analyzed By CAD. Pattern appears symmetrical and stable. No significant interval change is evident. Core marker is within the right breast. Benign calcifications are present bilaterally. No suspicious groups of microcalcifications, spiculated or lobular masses, architectural distortion or other secondary signs of malignancy are mammographically apparent. Overall Assessment: Benign, BI-RAD 2 Management: Screening Mammogram of both breasts in 1 year. A negative mammogram report should not preclude additional follow up of suspicious palpable abnormalities. Patient should continue monthly self breast exam. A clinical breast exam by your physician is recommended on an annual basis and results should be correlated with mammographic findings. Electronically signed and approved by: Rodney Nina D.O. Radiologis
== END ==
LOC: WWCWWP 08:01
PROVIDERS: ATTEND Obstetrics & Gynecology
DX: Z12.31 Encounter for screening mammogram for malignant neoplasm of breast (principal); Z01.411 Encounter for gynecological examination (general) (routine) with abnormal findings; M19.90 Unspecified osteoarthritis, unspecified site; M81.0 Age-related osteoporosis without current pathological fracture; F17.210 Nicotine dependence, cigarettes, uncomplicated; Z80.3 Family history of malignant neoplasm of breast; Z88.2 Allergy status to sulfonamides
CPT/HCPCS: 77063; 77067

== ENCOUNTER → 2023-06-04 | Outpatient (CLI) | payer BC ==
--- NOTE | 2023-06-04 08:29 | XR ---
EXAMINATION TYPE: XR chest 2V DATE OF EXAM: 06/04/2023 COMPARISON: NONE TECHNIQUE: PA and lateral views submitted. HISTORY: Cough FINDINGS: The lungs are clear and there is no pneumothorax, pleural effusion, or focal pneumonia. Heart size normal and no overt failure. Osseous structures demonstrate hypertrophic and degenerative changes of the spine. Hyperinflation suggests COPD. Biapical pleural thickening. IMPRESSION: 1. No acute process. Correlate for COPD. Coarsened interstitium can be associated with bronchitis or interstitial pneumonitis.
== END | disposition home or self-care (01) ==
LOC: RADXRMAIN 05:40
PROVIDERS: ATTEND Family Medicine
DX: J20.9 Acute bronchitis, unspecified (principal)
CPT/HCPCS: 71046

== ENCOUNTER → 2023-06-29 | Outpatient (CLI) | payer BC ==
--- NOTE | 2023-06-29 08:16 | CTL ---
EXAMINATION TYPE: CT Low Dose Lung DATE OF EXAM ORDERED: 06/29/2023 COMPARISON: None HISTORY: . Low Dose CT Lung Screening CT DLP: 93.[address] CTDI: 2.4 mGy IV CONTRAST USED: None. SCREENING VISIT: First visit COMPARISON: None. TECHNIQUE: Low dose computed tomography scan was performed through the chest at 1 millimeter thick se ctions and reconstructed images in the coronal plane at [address] DIAGNOSTIC QUALITY: Satisfactory FINDINGS: LUNG NODULES: Not presentLeft lung: no nodules identified.Right lung: no nodules identified. LUNGS: COPD: Severity: None Fibrosis: Severity:None Lymph nodes: None Other findings: None RIGHT PLEURAL SPACE: Effusion: None Calcification: None Thickening: None Pneumothorax: None LEFT PLEURAL SPACE: Effusion: None Calcification: None Thickening: None Pneumothorax: None HEART: Heart Size: Mildly enlarged Coronary calcification: Mild Pericardial effusion: None OTHER FINDINGS: Upper abdomen: No significant abnormality Bony thorax: Degenerative changes Supraclavicular region: No significant abnormalityOther: No significant abnormalityI IMPRESSION: Mild COPD changes noted. No distinct pulmonary nodularity FOLLOW UP CT CHEST RECOMMENDATION: Follow-up screening in one year CT LUNG RAD: LUNG RAD CATEGORY 1 negative
== END | disposition home or self-care (01) ==
LOC: RADCTMAIN 06:34
PROVIDERS: ATTEND Family Medicine
DX: Z12.2 Encounter for screening for malignant neoplasm of respiratory organs (principal); F17.210 Nicotine dependence, cigarettes, uncomplicated; J44.9 Chronic obstructive pulmonary disease, unspecified
CPT/HCPCS: 71271

== ENCOUNTER → 2023-08-26 | Outpatient (CLI) | payer BC ==
--- NOTE | 2023-08-27 12:41 | US ---
EXAMINATION TYPE: US abdomen complete DATE OF EXAM: 08/26/2023 COMPARISON: CT 10/23/2022; WNL CLINICAL INDICATION: Female, 58 years old with history of R10.12 LEFT UPPER QUADRANT PAIN; LUQ/LLQ pa in x 2 weeks, constipation x 3 weeks, and nausea TECHNIQUE: Multiple sonographic images of the abdomen are obtained. 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 No acute ultrasound abdomen abnormality.
== END | disposition home or self-care (01) ==
LOC: RADUSWWP 08:54
PROVIDERS: ATTEND Family Medicine
DX: K59.00 Constipation, unspecified (principal); R11.0 Nausea
CPT/HCPCS: 76700

== ENCOUNTER 2023-09-22 06:16 | Day surgery (SDC) | payer BC ==
[2023-09-20 10:17] VITALS: BMI 23.3
[2023-09-22] MEDS ORDERED: LIDOCAINE 1% (10MG/ML) FOR IV START INTRADERMA PRN (06:21)
[2023-09-22] MEDS: LACTATED RINGERS 1,000 ML IV SCH (06:58)
[2023-09-22 07:05] VITALS: TEMP 98.2
[2023-09-22] MEDS ORDERED: PROPOFOL 10 MG/ML 20 ML VIAL IV ONE (07:17)
[2023-09-22] MEDS ORDERED: LIDOCAINE 1% INJ 10MG/ML (20 ML MDV) ONE (07:17)
--- NOTE | 2023-09-22 07:44 | P.PCN ---
Date of Procedure: 09/22/23 Procedure(s) Performed: Brief history: Patient is a pleasant 58-year-old white female scheduled for an elective upper endoscopy as well as colonoscopy as a part of evaluation of abdominal pain, intermittent nausea vomiting and chronic constipation for the last several years duration Procedure performed: Esophagogastroduodenoscopy with biopsy Colonoscopy Preoperative diagnosis: Abdominal Pain/intermittent nausea vomiting Change in bowel habits Anesthesia: MAC Procedure: After informed consent was obtained from the patient was brought into the endoscopy unit and IV sedation was administered by anesthesia under continuous monitoring. Initially upper endoscopy was done. The Olympus GF 160 video endoscope was inserted inserted into the mouth and esophagus intubated without any difficulty and was gradually advanced into the stomach and duodenum and carefully examined. The bulb and second part of the duodenum appeared normal. Biopsies were done from the duodenum to rule out celiac disease The scope was then withdrawn into the stomach adequately insufflated with air and upon careful examination the antrum had mild gastritis and biopsies were done from this area. Mucosa of the body, cardia and fundus appeared normal. The scope was then withdrawn into the esophagus. The GE junction was located at 40 cm to the incisors. It appeared regular with 2 superficial erosions consistent with LA grade B esophagitis. Rest of the esophagus appeared normal. Patient tolerated the procedure well. At this time the patient continued to remain sedation. Initial digital rectal examination was normal. Olympus CF 160 video colonoscope was then inserted into the rectum and gradually advanced to the cecum without any difficulty. Careful examination was performed as the scope was gradually being withdrawn. The prep was excellent. The cecum, ascending colon, transverse colon, descending colon, sigmoid colon and rectum appeared normal. At her sigmoid diverticulosis. Retroflexion was performed in the rectum and no lesions were noted. Patient tolerated the procedure well. Impression: 1. Upper endoscopy revealed mild antral gastritis and LA grade B reflux esophagitis 2. Colonoscopy was within normal limits except for scattered sigmoid diverticulosis Recommendations: Findings of this examination were discussed with the patient as well as her family. She was advised to follow with the biopsy results. Increase MiraLAX 1 scoop twice daily and continue with a high-fiber diet. Recommend repeat screening colonoscopy in 10 years.
[2023-09-22 08:39] VITALS: BP 125/86; PULSE 57; RESP 16
== END 2023-09-22 08:28 | disposition home or self-care (01) ==
LOC: ORWHC2ENDO 06:16
PROVIDERS: ATTEND Internal Medicine Gastroenterology
DX: K29.50 Unspecified chronic gastritis without bleeding (principal); K21.00 Gastro-esophageal reflux disease with esophagitis, without bleeding; K57.30 Diverticulosis of large intestine without perforation or abscess without bleeding; F17.210 Nicotine dependence, cigarettes, uncomplicated; Z79.899 Other long term (current) drug therapy; Z88.2 Allergy status to sulfonamides
CPT/HCPCS: 45378; 43239; J2001; J2704; 88305

== ENCOUNTER → 2024-03-14 | Outpatient (CLI) | payer BC ==
[2024-03-14 10:15] VITALS: BP 149/91; PULSE 59; RESP 16; TEMP 98.2
--- NOTE | 2024-03-14 10:37 | P.PN ---
Progress Note - Text Progress Note Date: 03/14/24 Chief Complaint: Left breast pain for 1-1/2 months. HPI: This is a 59-year-old with an LMP of 2016. The patient states she has been experiencing some left breast soreness since mid January. She thinks it may have gotten worse recently and now can also experience soreness in the left axilla. She denies feeling a lump or any breast discharge. She feels like the left breast feels a little bit larger to her, but does not seem to appear larger when she looks at her breasts. She did have a left breast biopsy years ago and she believes the left a marker in the breast. She does drink caffeinated soda and typically drinks about 32 ounces per day. She does exercise regularly. She denies any new medications or supplements ROS: Unremarkable PE: Blood pressure: 149/91, Height: 5 feet 6 inches, Weight: 144 pounds, Temperature: 98.2, Pulse: 59. Pulse oximeter 99%. This is a well developed, well nourished, white female who is alert and orientedx3, in no acute distress. The left breast has a scar on the upper breast consistent with her previous biopsy. There is a slight dimpled area at the biopsy site which is typical for previous biopsy. Left breast is without palpable masses or discharge. There is minimal upper breast tenderness. Left axilla is negative for mass or tenderness. The breast appeared symmetric in size and there is no additional dimpling or puckering with her hands pushed up against her hips or with her arms raised above her head. Her previous screening mammogram done on 04/06/2023 was benign. Impression: 1. 59-year-old menopausal female with a 1 and half month history of left breast mastodynia extending to the axilla. There are no significant physical findings on exam today other than mild tenderness. Plan: 1. I recommended conservative management at this time. I recommended that she gradually cut back on caffeinated drinks. I have also recommended that she avoid exercises that workout the pectoral muscles at this time to see if this helps. I have also asked her to avoid over palpating the left breast since that potentially could increase soreness. 2. She will be due for her annual examination in approximately 1 month. At that time we will recheck the breasts and do a mammogram. If her symptoms are improving with conservative measures, we will do a screening mammogram. If her symptoms are not improving, she was instructed to call several days in advance to change the screening mammogram to a diagnostic mammogram. Time spent with the patient: 15 minutes
== END ==
LOC: WWCWWP 09:56
PROVIDERS: ATTEND Obstetrics & Gynecology
DX: N64.4 Mastodynia (principal); N64.89 Other specified disorders of breast; F17.200 Nicotine dependence, unspecified, uncomplicated; Z78.0 Asymptomatic menopausal state; Z88.2 Allergy status to sulfonamides

== ENCOUNTER → 2024-04-11 | Outpatient (CLI) | payer BC ==
[2024-04-11 08:18] VITALS: BP 135/82; PULSE 51; RESP 16; TEMP 98.1
--- NOTE | 2024-04-11 08:41 | P.HPOB ---
History of Present Illness H&P Date: 04/11/24 Chief Complaint: The patient is here for her routine gynecologic exam and ma mmogram. This is a 59-year-old with an LMP of 2016. The patient was seen about 1 month ago because of some acute breast pain. She states this did resolve. She is now without gynecologic complaints and denies any postmenopausal bleeding. Review of Systems The patient has lost 4 pounds over the last year. She denies respiratory, cardiac, or G.I. problems. Past Medical History Past Medical History: Musculoskeletal Disorder, Osteoarthritis (OA), Skin Disorder Additional Past Medical History / Comment(s): History of osteoporosis and has been on alendronate since April 2020. 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 History of Any Multi-Drug Resistant Organisms: None Reported Past Surgical History: Breast Surgery, Orthopedic Surgery, Tonsillectomy Additional Past Surgical History / Comment(s): kusum. 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 Colonoscopies (last 2016). Arthroscopic RT knee surgery. Colonoscopy with upper endoscopy 2023(next colonoscopy after 10yr). Past Anesthesia/Blood Transfusion Reactions: No Reported Reaction Past Psychological History: No Psychological Hx Reported Smoking Status: Current every day smoker (About 5 cigarettes/day.) Past Alcohol Use History: Rare ( 12 beers per year.) Additional Past Alcohol Use History / Comment(s): SMOKING <1/2 PPD DOWN FROM 1 PPD-HAD BEEN SMOKING OFF AND ON SINCE AGE 20 Past Drug Use History: None Reported Additional History: She has been since 1992. 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 - Past Family History Sister(s) Family Medical History: Cancer, Coronary Artery Disease (CAD) Additional Family Medical History / Comment(s): Breast cancer in her 40s. Father Family Medical History: Diabetes Mellitus, Hypertension, Myocardial Infarction ([place]), Pulmonary Embolus Medications and Allergies Home Medications Medication Instructions Recorded Confirmed Type Calcium Carbonate/Vitamin D3 1 each PO DAILY 11/16/17 03/14/24 History [Calcium 600-Vit D3 500 Softgel] Cholecalciferol [Vitamin D3] 1,000 unit PO DAILY 11/16/17 03/14/24 History Multivitamins, Thera [Multivitamin 1 tab PO DAILY 11/16/17 03/14/24 History (formulary)] valACYclovir HCL [Valtrex] 500 mg PO WEEKLY 11/16/17 03/14/24 History Cyanocobalamin [Vitamin B-12] 500 mcg PO DAILY 02/28/19 03/14/24 History Prednisolone Acetate/Pf 1 drop RIGHT EYE WEEKLY 03/20/20 03/14/24 History [Prednisolone Acet 1% Eye Drop] Alendronate Sodium 70 mg PO ROACH 09/20/23 03/14/24 History Fluocinonide 0.05% [Lidex 0.05% 1 applic TOPICAL DAILY PRN 09/20/23 03/14/24 History cream] Allergies Allergy/AdvReac Type Severity Reaction Status Date / Time Sulfa (Sulfonamide Allergy Rash/Hives Verified 04/11/24 08:15 Antibiotics) Exam Vital Signs Temp Pulse Resp BP Pulse Ox 04/11/24 08:16 98.1 F 51 L 16 135/82 99 Intake and Output 04/10/24 04/11/24 04/11/24 22:59 06:59 14:59 Other: Weight 65.317 kg Height 5 feet 6 inches, weight 144 pounds, BMI 23.2. This is a well-developed well-nourished white female who is alert and oriented times 3 in no acute distress. HEENT: Within normal limits. NECK: Supple without mass or thyromegaly. CHEST AND LUNGS: Clear to auscultation. HEART: Regular rate and rhythm. BREASTS: Are without mass or discharge. AXILLARY EXAM: Negative for adenopathy. BACK: Negative for CVA tenderness. ABDOMEN: Soft, nontender, without palpable masses. PELVIC EXAM: Normal external genitalia mild atrophy. Cervix and vagina appear normal with mild atrophy. There is no unusual discharge. There is no evidence of prolapse. The uterus is posterior, nongravid size and nontender. There are no palpable adnexal masses or tenderness. RECTAL EXAM: Rectovaginal exam is negative for mass or tenderness and is negative for occult blood. EXTREMITIES: Nontender. IMPRESSION: 1. 59-year-old menopausal female with normal gynecologic exam. 2. Resolution of breast pain. Normal breast exam. 3. History of osteoporosis and has been on alendronate since April 2020. PLAN: 1. Pap smear was deferred since she had a negative Pap smear cotest on 03/25/2021. 2. Self breast awareness was discussed with the patient. We have also discuss ed symptoms associated with inflammatory breast cancer. 3. Screening mammogram was done today. 4. Osteoporosis management was discussed. I have stressed the importance of adequate calcium, vitamin D and regular exercise. Recommended amounts of calcium and vitamin D were also discussed. She will continue to take alendronate 70 mg weekly. Electronic prescription will be sent to [facility] pharmacy in [facility]. We will continue the alendronate for 1 more year. Her bone density test that she was going to do today will be rescheduled since they are currently not doing going to density tests today. The order slip was given to the patient for this. 5. I have recommended that she try to quit smoking. 6. She was advised to return in one year for her annual well woman exam.
--- NOTE | 2024-04-14 10:13 | MM ---
Reason for Exam: Screening (asymptomatic). Last screening mammogram was performed 12 month(s) ago. Patient History: Menarche at age 13. First Full-Term at age 29. Postmenopausal. 1989, Benign Excisional Biopsy on the left side. 01/24/2015, Benign Core Biopsy on the right side. Sister had breast cancer, age 47. Risk Values: Adele 5 year model risk: 4.1%. NCI Lifetime model risk: 23.2%. Prior Study Comparison: 02/10/2017 Bilateral Screening Mammogram, [facility]. 02/21/2018 Bilateral Screening Mammogram, [facility]. 02/28/2019 Bilateral Screening Mammogram, [facility]. 03/20/2020 Bilateral Screening Mammogram, [facility]. 03/25/2021 Bilateral Screening Mammogram, [facility]. 03/31/2022 Bilateral MG 3D screening mammo w/cad, [facility]. 04/06/2023 Bilateral MG 3D screening mammo w/cad, [facility]. Tissue Density: There are scattered areas of fibroglandular density. Findings: Analyzed By CAD. Right breast biopsy clip. Right breast: There is no suspicious group of microcalcifications or new suspicious mass. Left breast: Architectural distortion slice 38/ neural depth posterior nipple line. Approximately 4.5 cm from the nipple. 53 MLO view. Overall Assessment: Incomplete: need additional imaging evaluation, BI-RAD 0 Management: Diagnostic Mammogram of the left breast. [facility] will attempt to contact patient to return for supplemental views and ultrasound if indicated. Patient should continue monthly self-breast exams. A clinical breast exam by your physician is recommended on an annual basis. This exam should not preclude additional follow-up of suspicious palpable abnormalities. Note on Adele scores and lifetime risk: 1. A Adele score greater than 3% is considered moderate risk. If this is the case, consider specialist referral to assess eligibility for a risk reducing agent. 2. If overall lifetime risk for the development of breast cancer is 20% or higher, the patient may qualify for future screening with alternating mammogram and breast MRI. Electronically signed and approved by: Chris Rashid DO
== END | disposition home or self-care (01) ==
LOC: RADMAMWWP 07:00
PROVIDERS: ATTEND Obstetrics & Gynecology
DX: Z00.00 Encounter for general adult medical examination without abnormal findings (principal); Z12.31 Encounter for screening mammogram for malignant neoplasm of breast; R92.323 Mammographic fibroglandular density, bilateral breasts; Z78.0 Asymptomatic menopausal state; Z80.3 Family history of malignant neoplasm of breast
CPT/HCPCS: 77063; 77067

== ENCOUNTER → 2024-04-19 | Outpatient (CLI) | payer BC ==
--- NOTE | 2024-04-19 07:37 | MM ---
Reason for Exam: Clinical finding. Last screening mammogram was performed less than 1 month ago. Patient History: Menarche at age 13. First Full-Term at age 29. Postmenopausal. 1989, Benign Excisional Biopsy on the left side. 01/24/2015, Benign Core Biopsy on the right side. Sister had breast cancer, age 47. Risk Values: Adele 5 year model risk: 4.1%. NCI Lifetime model risk: 23.2%. Prior Study Comparison: 03/31/2022 Bilateral MG 3D screening mammo w/cad, [facility]. 04/06/2023 Bilateral MG 3D screening mammo w/cad, [facility]. 04/11/2024 Bilateral MG 3D screening mammo w/cad, [facility]. Tissue Density: Left: There are scattered areas of fibroglandular density. Findings: Analyzed By CAD. Area of concern/architectural distortion compresses out on spot compression imaging. No suspicious masses, calcifications or distortions. Overall Assessment: Benign, BI-RAD 2 Management: Screening Mammogram of both breasts in 1 year. Results were given to the patient verbally at the time of exam. Patient should continue monthly self-breast exams. A clinical breast exam by your physician is recommended on an annual basis. This exam should not preclude additional follow-up of suspicious palpable abnormalities. Note on Adele scores and lifetime risk: 1. A Adele score greater than 3% is considered moderate risk. If this is the case, consider specialist referral to assess eligibility for a risk reducing agent. 2. If overall lifetime risk for the development of breast cancer is 20% or higher, the patient may qualify for future screening with alternating mammogram and breast MRI. Electronically signed and approved by: Chris Rashid DO
== END | disposition home or self-care (01) ==
LOC: RADMAMWWP 07:03
PROVIDERS: ATTEND Obstetrics & Gynecology
DX: R92.8 Other abnormal and inconclusive findings on diagnostic imaging of breast
CPT/HCPCS: 77061; 77065

== ENCOUNTER → 2024-06-02 | Outpatient (CLI) | payer BC ==
--- NOTE | 2024-06-02 12:45 | BD ---
EXAMINATION TYPE: Axial Bone Density DATE OF EXAM: 06/02/2024 CLINICAL HISTORY: 59 years old Female. ICD-10 CODE: Z78.0 ASYMP DARCIE STATE M81.0 OSTEO Height: 65 Weight: 139 FRAX RISK QUESTIONS: Family History (Parent hip fracture): yes Glucocorticoids (More than 3mos): yes for eyes only (Ex: prednisone, prednisolone, methylprednisolone, dexamethasone, and hydrocortisone). History of Fracture in Adulthood: yes 3. Menopause before 45: no at 50 Current Tobacco Use: yes RISK FACTORS HISTORY OF: height loss, hx of hand and finger fxs, MEDICATIONS: steroidal eyedrops, Osteoporosis Medications: yes, fosamax, for about 4 yrs EXAM MEASUREMENTS: Bone mineral densitometry was performed using the [employer] System. Bone mineral density as measured about the Lumbar spine is: ----- L1-L4(G/cm2): 0.765 T Score Values are as follows: ----- L1: -3.4 ----- L2: -3.6 ----- L3: -3.4 ----- L4: -3.6 ----- L1-L4: -3.5 Z Score Values are as follows: ----- L1: -2.4 ----- L2: -2.6 ----- L3: -2.3 ----- L4: -2.5 ----- L1-L4: -2.4 Bone mineral density has: Decreased -6.8% since study of: 03.31.2022 Bone mineral density about the R hip (g/cm2): 0.818 Bone mineral density about the L hip (g/cm2): 0.760 T Score values are as follows: -----R Neck: -1.4 -----L Neck: -1.9 -----R Total: -1.5 -----L Total: -2.0 Z Score values are as follows: -----R Neck: -0.3 -----L Neck: -0.7 -----R Total: -0.7 -----L Total: -1.1 Bone mineral density has: remained the same 0.0% since study of: 03.31.2022 FRAX%s: The graph provided illustrates a 14.5% chance for a major osteoporotic fx and a 3.0% chance f or the hips probability for fx in 10 years time. IMPRESSION: Osteoporosis (T Score less than -2.5). There is increased fracture risk and therapy is usually indicated based on age. Re-Screen 1-2 years. NOTE: T-SCORE=SD OF THE YOUNG ADULT MEAN. [facility], , 06/02/2024 12:43 PM
== END ==
LOC: RADBDWWP 09:48
PROVIDERS: ATTEND Obstetrics & Gynecology
CPT/HCPCS: 77080

== ENCOUNTER → 2024-07-25 | Outpatient (CLI) | payer BC ==
--- NOTE | 2024-07-26 16:39 | CTL ---
EXAMINATION TYPE: CT Low Dose Lung DATE OF EXAM: 07/25/2024 7:20 AM COMPARISON: None. CLINICAL INDICATION: Female, 59 years old with history of Z12.2 Screening; F17.210 Nicotine dependent , nicotine dependence, screening, Lung cancer screening, History of tobacco use. TECHNIQUE: Low dose computed tomography scan was performed through the chest at 1 mm thick sections a nd reconstructed images in the coronal plane at 1 mm thick sections. Contrast used: mL of , (none if empty) Oral contrast used: (none if empty) CT DLP: 82.9 mGycm, Automated exposure control for dose reduction was used. CT CTDI: 2.0 mGy, Automated exposure control for dose reduction was used. SCREENING VISIT: Subsequent CT DIAGNOSTIC QUALITY: Satisfactory FINDINGS: LUNG NODULES: Present, detailed below: 1. There is a punctate peripheral posterior right apical nodule. Series 4 image 49. Stable.r LUNGS: COPD: Severity: None Fibrosis: Severity: None Lymph nodes: None Other findings: None RIGHT PLEURAL SPACE: Effusion: None Calcification: None Thickening: None Pneumothorax: None LEFT PLEURAL SPACE: Effusion: None Calcification: None Thickening: None Pneumothorax: None HEART: Other: Ascending thoracic aorta at the level the main pulmonary artery measures 3.3 cm. The main pul monary artery at the bifurcation measures2.4 cm. Heart Size: Normal Coronary calcification: None Pericardial effusion: None OTHER FINDINGS: Upper abdomen: Normal Bony thorax: Normal Supraclavicular region: Normal IMPRESSION: No suspicious changes to suggest primary or metastatic neoplasm. FOLLOW UP CT CHEST RECOMMENDATION: Follow-up low-dose CT chest [address] LUNG RAD: Lung-Rad 2 Benign Appearance or Behavior [facility], , 07/26/2024 4:36 PM
== END | disposition home or self-care (01) ==
LOC: RADCTMAIN 06:48
PROVIDERS: ATTEND Family Medicine
DX: Z12.2 Encounter for screening for malignant neoplasm of respiratory organs (principal); F17.210 Nicotine dependence, cigarettes, uncomplicated
CPT/HCPCS: 71271